=== PATIENT | female | born 1985 | race Caucasian/White ===

== ENCOUNTER → 2017-10-24 | Outpatient (CLI) | payer OTHER | LOC: GMAJS 11:00 | PROVIDERS: ATTEND Physician Assistant | DX: R10.84 Generalized abdominal pain (principal) ==

== ENCOUNTER → 2018-03-29 | Outpatient (CLI) | payer OTHER | LOC: GMAM 14:23 | PROVIDERS: ATTEND Nurse Practitioner Family | DX: R10.13 Epigastric pain (principal) ==